=== PATIENT | female | born 1995 | race Caucasian/White ===

== ENCOUNTER 2020-05-11 21:06 | Emergency (ER) | payer BC, OTHER ==
[2020-05-11 23:02] LABS: Urine Blood NEGATIVE (NEG); Urine Glucose NEGATIVE (NEG); Urine Protein NEGATIVE (NEG); Urine pH 7.5 (5.0-7.0)
[2020-05-11 23:56] LABS: Absolute Lymphocytes (CBC) 2.6 K/uL (0.7-4.9); Basophils % 0.3 % (0-1.3); Hematocrit 34.1 % (36.0-45.0); Lymphocytes % 26.9 % (15.3-44.8); MPV 8.3 fL (7.6-11.3); RBC Red Blood Cell Count 3.96 M/uL (3.86-4.86)
[2020-05-12 00:03] LABS: BUN Blood Urea Nitrogen 8 mg/dL (7-18); Bicarbonate 26 mmol/L (21-32); Glucose Level 92 mg/dL (74-106); Potassium 3.8 mmol/L (3.5-5.1); Sodium Level 139 mmol/L (136-145)
--- NOTE | 2020-05-12 00:50 | EDPHYS ---
Physician Documentation [facility] Name: Genesis Gutierrez Age: 24 yrs Sex: Female : 1995 Arrival Date: 05/11/2020 Time: 21:07 Bed 27 Private MD: ED Physician Syed Chiu HPI: 05/12 00:50 This 24 yrs old Female presents to ER via Ambulatory with complaints of ps1 Abdominal Cramping. 00:50 \T\ 15weeks presenting with abdominal cramping. Atraumatic. Sex 2 days ago. No urine ps1 symptoms. Denies VB, LOF. No FM appreciated in yet. No fever. Tolerating PO. No NV. . AUDIOLOGY DIRECTOR: 05/11 21:45 LMP 02/01/2020 rr5 Historical: - Allergies: 21:44 Tylenol; rr5 - Home Meds: 21:44 Vitamin Oral [Active]; Hydroxyzine Oral [Active]; pantoprazole oral oral rr5 [Active]; Clonazepam Oral [Active]; - PMHx: 21:44 Anxiety; rr5 - PSHx: 21:44 None; rr5 - Immunization history:: Adult Immunizations up to date. - Social history:: Smoking status: Patient reports the use of cigarette tobacco products, Patient/guardian denies using alcohol, street drugs. ROS: 05/12 00:50 Constitutional: Negative for fever, chills, and weight loss, Eyes: Negative for injury, ps1 pain, redness, and discharge, Cardiovascular: Negative for chest pain, palpitations, and edema, Respiratory: Negative for shortness of breath, cough, wheezing, and pleuritic chest pain, MS/Extremity: Negative for injury and deformity, Skin: Negative for injury, rash, and discoloration, Neuro: Negative for headache, weakness, numbness, tingling, and seizure. Abdomen/GI: Positive for cramping. Exam: 00:50 Constitutional: This is a well developed, well nourished patient who is awake, alert, ps1 and in no acute distress. Head/Face: Normocephalic, atraumatic. Eyes: Pupils equal round and reactive to light, extra-ocular motions intact. Lids and lashes normal. Conjunctiva and sclera are non-icteric and not injected. Cardiovascular: Regular rate and rhythm. No gallops, murmurs, or rubs. Normal PMI, no JVD. No pulse deficits. Respiratory: Lungs have equal breath sounds bilaterally, clear to auscultation and percussion. No rales, rhonchi or wheezes noted. No increased work of breathing, no retractions or nasal flaring. Skin: Warm, dry with normal turgor. Normal color with no rashes, no lesions, and no evidence of cellulitis. MS/ Extremity: Pulses equal, no cyanosis. Neurovascular intact. Full, normal range of motion. 00:50 Abdomen/GI: Inspection: gravid appearance, is noted, Bowel sounds: normal, Palpation: abdomen is soft and non-tender, transabdominal US performed with IUP with FHT 167. Not anatomical study. Did not appreciate MARIA ESTHER. . Vital Signs: 05/11 21:37 BP 116 / 69; Pulse 85; Resp 16; Temp 98.3; Pulse Ox 100% ; Weight 76.66 kg; Height 5 rr5 ft. 3 in. (160.02 cm); Pain 6/10; 21:37 Body Mass Index 29.94 (76.66 kg, 160.02 cm) rr5 MDM: 23:23 Patient medically screened. ps1 05/12 00:53 Differential diagnosis: ectopic , cramping, round ligament pain. Data ps1 reviewed: vital signs, nurses notes, lab test result(s), and as a result, I will discharge patient. Counseling: I had a detailed discussion with the patient and/or guardian regarding: the historical points, exam findings, and any diagnostic results supporting the discharge/admit diagnosis, lab results, the need for outpatient follow up, for definitive care, an OB/Gyne specialist, to return to the emergency department if symptoms worsen or persist or if there are any questions or concerns that arise at home. 05/11 22:42 Order name: Urine --Ancillary (enter results); Complete Time: 23:22 mw2 05/11 22:42 Order name: Urine Dipstick--Ancillary (enter results); Complete Time: 23:22 mw2 05/11 21:45 Order name: Urine Dipstick-Ancillary (obtain specimen); Complete Time: 22:41 rr5 05/11 22:42 Order name: Urine Test (obtain specimen); Complete Time: 22:42 rr5 05/11 23:23 Order name: CBC with Diff; Complete Time: 00:08 ps1 05/11 23:23 Order name: BMP; Complete Time: 00:08 ps1 Administered Medications: No medications were administered Disposition: 05/12/20 00:50 Discharged to Home. Impression: Abdominal cramping in early .. - Condition is Stable. - Discharge Instructions: Abdominal Pain During , [id number]. - Medication Reconciliation Form, Thank You Letter, Antibiotic Education, Prescription Opioid Use form. - Follow up: Private Physician; When: Tomorrow; Reason: Recheck today's complaints, Continuance of care, Re-evaluation by your physician. Follow up: Emergency Department; When: As needed; Reason: Fever > 102 F, Trouble breathing, Worsening of condition. - Problem is new. - Symptoms have improved. Signatures: Dispatcher [employer] Fredis Michaels, RN RN Syed Chiu MD MD ps1 Albert Mishra mw2 Tam Dunbar RN RN rr5 Corrections: (The following items were deleted from the chart) 05/11 22:44 22:42 Urine Test ordered. mw2 rr5 05/12 01:24 00:50 05/12/2020 00:50 Discharged to Home. Impression: Abdominal cramping in early em .. Condition is Stable. Forms are Medication Reconciliation Form, Thank You Letter, Antibiotic Education, Prescription Opioid Use. Follow up: Private Physician; When: Tomorrow; Reason: Recheck today's complaints, Continuance of care, Re-evaluation by your physician. Follow up: Emergency Department; When: As needed; Reason: Fever > 102 F, Trouble breathing, Worsening of condition. Problem is new. Symptoms have improved. ps1
--- NOTE | 2020-05-12 00:50 | ER ---
Nurse's Notes [facility] Name: Genesis Gutierrez Age: 24 yrs Sex: Female : 1995 Arrival Date: 05/11/2020 Time: 21:07 Bed 27 Private MD: Diagnosis: Abdominal cramping in early . Presentation: 05/11 21:37 Chief complaint: Patient states: abdominal cramps started yesterday continuous pain rr5 with nausea. I am on my 15 weeks of now. Coronavirus screen: Client denies travel out of the [place] in the last 14 days. Client reports previous positive COVID test result. Date of collection: April 20, 2020. Ebola Screen: Patient negative for fever greater than or equal to 101.5 degrees Fahrenheit, and additional compatible Ebola Virus Disease symptoms Patient denies exposure to infectious person. Patient denies travel to an Ebola-affected area in the 21 days before illness onset. Initial Sepsis Screen: Does the patient meet any 2 criteria? No. Patient's initial sepsis screen is negative. Does the patient have a suspected source of infection? No. Patient's initial sepsis screen is negative. Risk Assessment: Do you want to hurt yourself or someone else? Patient reports no desire to harm self or others. Onset of symptoms was May 11, 2020. 21:37 Method Of Arrival: Ambulatory rr5 21:37 Acuity: JOSEPH 3 rr5 PHYSIOTHERAPY ASSISTANT: 21:45 LMP 02/01/2020 rr5 Historical: - Allergies: 21:44 Tylenol; rr5 - Home Meds: 21:44 Vitamin Oral [Active]; Hydroxyzine Oral [Active]; pantoprazole oral oral rr5 [Active]; Clonazepam Oral [Active]; - PMHx: 21:44 Anxiety; rr5 - PSHx: 21:44 None; rr5 - Immunization history:: Adult Immunizations up to date. - Social history:: Smoking status: Patient reports the use of cigarette tobacco products, Patient/guardian denies using alcohol, street drugs. Screenin:25 Abuse screen: Denies threats or abuse. Denies injuries from another. Nutritional iw screening: No deficits noted. Tuberculosis screening: No symptoms or risk factors identified. Fall Risk None identified. Assessment: 23:25 General: Appears in no apparent distress. Behavior is calm, cooperative. Pain: iw Complains of pain in abdomen. Neuro: Level of Consciousness is awake, alert, obeys commands, Oriented to person, place, time, situation, Moves all extremities. Full function. Cardiovascular: Patient's skin is warm and dry. Respiratory: Respiratory effort is even, unlabored, Respiratory pattern is regular, symmetrical. GI: Abdomen is non-distended, Bowel sounds present X 4 quads. Abd is soft and non tender X 4 quads. Derm: Skin is intact, is healthy with good turgor. Musculoskeletal: Range of motion: intact in all extremities. Vital Signs: 21:37 BP 116 / 69; Pulse 85; Resp 16; Temp 98.3; Pulse Ox 100% ; Weight 76.66 kg; Height 5 rr5 ft. 3 in. (160.02 cm); Pain 6/10; 21:37 Body Mass Index 29.94 (76.66 kg, 160.02 cm) rr5 Vitals: 23:00 Heart Tones 167 bpm. iw ED Course: 21:07 Patient arrived in ED. cl3 21:42 Triage completed. rr5 21:45 Arm band placed on right wrist. rr5 22:54 Syed Chiu MD is Attending Physician. ps1 23:19 Rafaela Castanon, RN is Primary Nurse. iw 23:46 Initial lab(s) drawn, by me, sent to lab. Inserted saline lock: 24 gauge in right iw forearm, using aseptic technique. Blood collected. 05/12 00:58 No provider procedures requiring assistance completed. IV discontinued, intact, em bleeding controlled, No redness/swelling at site. Pressure dressing applied. Administered Medications: No medications were administered Outcome: 00:50 Discharge ordered by . ps1 00:58 Discharged to home ambulatory. em 00:58 Condition: good 00:58 Discharge instructions given to patient, Instructed on discharge instructions, follow up and referral plans. Demonstrated understanding of instructions, follow-up care. 01:24 Patient left the ED. em Signatures: Fredis Montaño, RN RN em Rafaela Castanon, RN RN iw Syed Chiu MD MD ps1 Tam Dunbar RN RN rr5 Fadi Moore cl3
[2020-05-12 01:40] VITALS: BP 116/69; TEMP 98.3; O2SAT 100
== END 2020-05-12 01:24 | disposition home or self-care (01) ==
LOC: ER 21:06
DX: O26.892 Other specified pregnancy related conditions, second trimester (principal); O99.342 Other mental disorders complicating pregnancy, second trimester; O99.332 Smoking (tobacco) complicating pregnancy, second trimester; F17.210 Nicotine dependence, cigarettes, uncomplicated; Z3A.15 15 weeks gestation of pregnancy; Z88.6 Allergy status to analgesic agent
CPT/HCPCS: 36415; 80048; 81003; 81025; 85025; 99283